=== PATIENT | male | born 1960 | race Caucasian/White ===

== ENCOUNTER 2021-11-25 18:26 | Observation (INO) ==
[2021-11-25 21:25] LABS: INR 1.03 (0.89-1.11)
[2021-11-25 21:31] LABS: Albumin 4.2 g/dL (3.2-5.2); Calcium 9.5 mg/dL (8.6-10.3); Potassium 4.5 mmol/L (3.5-5.0); Total Bilirubin 0.5 mg/dL (0.2-1.0)
[2021-11-25 21:37] LABS: Albumin/Globulin Ratio 1.4 (1-3); Globulin 3.1 g/dL (2-4); Total Protein 7.3 g/dL (6.4-8.9); eGFR CKD-EPI 76.4 (>60)
[2021-11-25 21:51] LABS: ABS Basophils 0.1 10^3/ul (0-0.2); ABS Eosinophils 0.1 10^3/ul (0-0.6); ABS Lymphocytes 1.4 10^3/ul (1.0-4.8); ABS Monocytes 0.5 10^3/ul (0-0.8); Hematocrit 53 % (42-52); Hemoglobin 17.2 g/dL (14.0-18.0); Lymphocyte % 10.9 %; Mean Corpuscular HGB Conc 33 g/dL (31-36); Mean Corpuscular Hemoglobin 29 pg (27-31); Mean Corpuscular Volume 90 fL (80-94); Mean Platelet Volume 8.9 fL (7.4-10.4); Platelet Count 224 10^3/uL (150-450); Red Blood Count 5.91 10^6 /uL (4.18-5.48); Red Cell Distribution Width 14 % (10-15); White Blood Count 13.2 10^3/uL (3.5-10.8)
[2021-11-25] MEDS ORDERED: Iohexol 350 (CONTRAST) 500 ML MDV IV ONE (22:34)
[2021-11-26 02:21] LABS: C Reactive Protein 9.23 mg/L (<8.01)
[2021-11-26] MEDS ORDERED: Enoxaparin 40 MG/0.4 ML SYR SUBCUT SCH (03:00)
[2021-11-26 04:45] LABS: ABS Basophils 0.1 10^3/ul (0-0.2); ABS Eosinophils 0.2 10^3/ul (0-0.6); ABS Lymphocytes 2.3 10^3/ul (1.0-4.8); ABS Monocytes 0.8 10^3/ul (0-0.8); ABS Neutrophils 9.5 10^3/ul (1.5-7.7); Eosinophil % 1.3 %; Hematocrit 48 % (42-52); Lymphocyte % 17.5 %; Mean Corpuscular HGB Conc 33 g/dL (31-36); Mean Corpuscular Hemoglobin 29 pg (27-31); Mean Corpuscular Volume 88 fL (80-94); Mean Platelet Volume 8.8 fL (7.4-10.4); Nucleated Red Blood Cells % 0.1; Platelet Count 238 10^3/uL (150-450); Red Blood Count 5.49 10^6 /uL (4.18-5.48); Red Cell Distribution Width 13 % (10-15); White Blood Count 12.8 10^3/uL (3.5-10.8)
[2021-11-26 04:49] LABS: INR 1.04 (0.89-1.11)
[2021-11-26 05:10] LABS: Albumin 3.7 g/dL (3.2-5.2); CO2 Carbon Dioxide 25 mmol/L (22-32); Calcium 8.9 mg/dL (8.6-10.3); Chloride 101 mmol/L (101-111); Sodium 132 mmol/L (135-145)
[2021-11-26 05:16] LABS: ALT 18 U/L (7-52); Albumin/Globulin Ratio 1.4 (1-3); Alkaline Phosphatase 85 U/L (35-149); Blood Urea Nitrogen 12 mg/dL (6-24); Cholesterol 162 mg/dL; Globulin 2.7 g/dL (2-4); Glucose 110 mg/dL (70-100); HDL Cholesterol 32.7 mg/dL; LDL Cholesterol 106 mg/dL; Total Protein 6.4 g/dL (6.4-8.9); Triglycerides 119 mg/dL; eGFR CKD-EPI 97.8 (>60)
[2021-11-26 05:22] LABS: Anion Gap 6 mmol/L (2-11)
[2021-11-26] MEDS: Heparin 5000 UNITS/ML 1 mL VIAL SUBCUT SCH ×3 (05:50→22:48)
[2021-11-26] MEDS ORDERED: Nicotine PATCH 14 MG/24 HR PATCH TRANSDERM SCH ×2 (09:00→21:00)
[2021-11-26] MEDS ORDERED: Regadenoson 0.4 MG/5 ML SYRINGE ONE (09:29)
[2021-11-26] MEDS ORDERED: Aminophylline 25 MG/ML VIAL ONE (09:29)
[2021-11-26] MEDS ORDERED: Sulfur Hexaflouride MICROSPHR 25 MG VIAL ONE (10:28)
[2021-11-26] MEDS: Fluticasone-Salmeterol 100-50 DISKUS NF INH SCH ×2 (12:06→20:50)
[2021-11-26] MEDS: Albuterol HFA INHALER 8 gm MDI INH SCH (21:40)
[2021-11-27] MEDS ORDERED: Nicotine GUM 2MG FRUIT FLAVOR PO PRN (02:24)
[2021-11-27] MEDS: Heparin 5000 UNITS/ML 1 mL VIAL SUBCUT SCH (05:34)
[2021-11-27] MEDS ORDERED: NS 0.9% 500 ml BAG 500 ML IV ONE (06:00)
[2021-11-27] MEDS: Albuterol HFA INHALER 8 gm MDI INH SCH (07:22)
[2021-11-27 07:38] LABS: Hematocrit 52 % (42-52); Hemoglobin 17.3 g/dL (14.0-18.0); Mean Corpuscular HGB Conc 33 g/dL (31-36); Mean Corpuscular Hemoglobin 29 pg (27-31); Mean Corpuscular Volume 88 fL (80-94); Mean Platelet Volume 8.4 fL (7.4-10.4); Platelet Count 242 10^3/uL (150-450); Red Blood Count 5.89 10^6 /uL (4.18-5.48); Red Cell Distribution Width 14 % (10-15)
[2021-11-27] MEDS ORDERED: Midazolam 5 mg/5 ml VIAL 1 mg/ml 5 ml VIAL (5 mg) ONE (08:19)
[2021-11-27] MEDS ORDERED: VERAPAMIL 2.5 MG/ML 2 ML VIAL ** 5 mg/2 ml ONE (08:19)
[2021-11-27] MEDS ORDERED: Heparin 1,000 UNIT/ML 10 ml (10,000 UNITS) CATHLAB/DIALYSIS ONE (08:19)
[2021-11-27] MEDS ORDERED: fentaNYL 100 mcg/2 ml 50 MCG/ML VIAL ONE (08:19)
[2021-11-27] MEDS ORDERED: Lidocaine 1% MPF 5 ML VIAL ONE (08:20)
[2021-11-27] MEDS ORDERED: nitroGLYCERIN DRIP 25,000 MCG/250 ML BTL ONE (08:20)
[2021-11-27] MEDS ORDERED: Heparin 2 UNITS/ML 1000 mls 2,000 ML IV ONE (08:20)
[2021-11-27] MEDS ORDERED: Iohexol 350 (CONTRAST) 100 ML PAK IV ONE (08:20)
[2021-11-27 08:21] LABS: Calcium 8.8 mg/dL (8.6-10.3); Potassium 4.5 mmol/L (3.5-5.0)
[2021-11-27 08:26] LABS: eGFR CKD-EPI 92.2 (>60)
[2021-11-27] MEDS ORDERED: SPIRIVA Respimat (tiotropium) 2.5 mcg/inh Inhaler INH SCH (09:00)
[2021-11-27] MEDS ORDERED: NS 0.9% 1000 ml BAG 1,000 ML IV SCH (09:45)
[2021-11-27 14:32] VITALS: BP 125/67
== END 2021-11-27 14:35 | disposition home or self-care (01) ==
LOC: EDHOLD 18:26 → ED 18:26 → SUATTDRO 11-26 02:18 → EDHOLD 11-26 12:07 → MEDTELE 11-26 22:28
PROVIDERS: ADMIT Student in an Organized Health Care Education/Training Program; ATTEND Internal Medicine